=== PATIENT | male | born 1970 | race Caucasian/White ===

== ENCOUNTER 2016-06-07 10:50 | Observation (INO) ==
--- NOTE | 2016-06-07 11:01 | Emergency Department Note ---
Disposition Clinical Impression: Chest pain, CAD (coronary artery disease), Paresthesias, Dysphagia Disposition: Admitted As Inpatient Condition: Good Referrals: NO,PCP [Non-Partnered Physician] - Forms: ED Satisfaction Letter Time of Disposition: 13:31 Chest Pain HPI - General Chief Complaint: ED Chest Pain Stated Complaint: Chest Pain Time Seen by Provider: 06/07/16 10:59 Source: patient Mode of arrival: ambulatory Limitations: no limitations Vital Signs Reviewed: Yes Nursing Notes Reviewed: Yes - History of Present Illness HPI Narrative: This is a 45-year-old male who presents with complaints of palpitations and pain in his left shoulder going up into his neck times a week and a half. Patient states he has also feels swelling in his neck and like he cannot swallow fully. Patient states he has also noticed some paresthesias in his left upper extremity. Patient states he has been mildly short of breath. Patient was evaluated in a different ER a few days ago and they did not find anything going on. Patient has a hx of a pacemaker placed for bradycardia. Patient has never had any cardiac stents placed. Onset (ago): week(s) (1.5 wks) Duration: intermittent Severity scale (1-10): 4 - Related Data Home Medications Medication Instructions Recorded Confirmed No Known Home Drugs 05/28/16 06/07/16 Allergies Allergy/AdvReac Type Severity Reaction Status Date / Time ivp dye Allergy Nausea/vomiting/got Uncoded 06/07/16 13:39 hot All systems ED: reviewed and negative except as stated. Constitutional: Denies: fever, chills, weakness, weight change Eyes: Denies: eye pain, eye discharge, vision change ENT ED: Reports: dysphagia, other (pt feels like his neck is swelling). Denies : ear pain, throat pain, dental pain, hearing loss, epistaxis, congestion Cardiovascular: Reports: chest pain, palpitations. Denies: dyspnea on exertion , edema, syncope Respiratory: Reports: dyspnea. Denies: cough, wheezes, hemoptysis, stridor Gastrointestinal: Denies: abdominal pain, nausea, vomiting, diarrhea, constipation, hematemesis, melena, hematochezia Genitourinary: Denies: urgency, dysuria, frequency, hematuria Musculoskeletal: Denies: back pain, neck pain, arthralgia, myalgia Integumentary: Denies: rash, abrasion, lesions Neurological: Reports: paresthesias (to LUE). Denies: headache, weakness, numbness, confusion, abnormal gait, vertigo Psychiatric: Denies: anxiety, depression, suicidal thoughts, homicidal thoughts , auditory hallucinations, visual hallucinations Endocrine: Denies: fatigue Hematological/Lymphatic: Denies: easy bleeding, easy bruising Allergic/Immunologic: Denies: facial swelling, urticaria Chest Pain PMH - Past Medical History Medical history: Reports: arthritis, kidney stones, other Surgical history: Reports: orthopedic, other (Partial finger amputation), pacemaker/AICD Psychiatric history: Reports: anxiety - Social History Smoking Status: Current every day smoker Alcohol use: Reports: rarely Drug use: Reports: none Physical Exam - General Limitations: no limitations General appearance: alert, in no apparent distress - Head Head exam: atraumatic, normocephalic, normal inspection - Eye Eye exam: Present: normal appearance, PERRL, EOMI - ENT ENT exam: normal exam, normal oropharynx, mucous membranes moist - Expanded ENT Exam External ear exam: Present: normal external inspection Mouth exam: Present: normal external inspection Teeth exam: Present: normal inspection Throat exam: Present: normal inspection - Neck Neck exam: Present: normal inspection, full ROM, trachea midline - Chest Chest inspection: Present: normal inspection, symmetric chest wall rise - Respiratory Respiratory exam: Present: normal lung sounds bilaterally - Cardiovascular Cardiovascular exam: Present: regular rate, normal rhythm, normal heart sounds - Abdominal Exam Abdominal exam: Present: soft, Non-Tender. Absent: tenderness, distention, guarding, rebound, rigidity - Extremities Exam Extremities exam: Present: normal inspection, full ROM. Absent: tenderness, pedal edema - Expanded Upper Extremity Exam Shoulder exam: Present: normal inspection, full ROM Arm exam: Present: normal inspection, full ROM Elbow exam: Present: normal inspection, full ROM Forearm/Wrist exam: Present: normal inspection, full ROM Hand exam: Present: normal inspection, full ROM Vascular exam: Normal: capillary refill, radial pulse - Expanded Lower Extremity Exam Hip/Pelvis exam: Present: normal inspection, full ROM Upper leg exam: Present: normal inspection, full ROM Knee exam: Present: normal inspection, full ROM Lower leg exam: Present: normal inspection, full ROM Ankle exam: Present: normal inspection, full ROM Foot/toe exam: Present: normal inspection, full ROM Neurovascular/Tendon exam: Absent: motor deficit, sensory deficit, tendon deficit - Back Exam Back exam: Present: normal inspection, full ROM. Absent: tenderness - Neurological Exam Neurological exam: Present: alert, oriented X3 - Expanded Neurological Exam Patient oriented to: Present: person, place, time Speech: Present: fluid speech Cranial nerves: EOM function (II, III, IV, ): Normal, facial sensation (V): Normal, facial palsy (VII): Normal, spinal accessory function (XI): Normal, tongue deviation (XII): Normal Motor strength - LUE: 5/5 Motor strength - RUE: 5/5 Motor strength - LLE: 5/5 Motor strength - RLE: 5/5 Sensory exam upper extremity: light touch: Normal Sensory exam lower extremity: light touch: Normal Coma Scale Eye Opening: Spontaneous Coma Scale Motor Response: Obeys Commands Coma Scale Verbal Response: Oriented Coma Scale Total: 15 - Psychiatric Psychiatric exam: Present: normal affect, normal mood - Skin Skin exam: Present: warm, dry, intact, normal color Course - Consultations Consultation #1: I spoke with Dr. Braydon fuchs to admit. Time: 14:24 Vital Signs Temperature 97.8 F 06/07/16 10:51 Pulse Rate 62 06/07/16 10:51 Respiratory Rate 16 06/07/16 10:51 Blood Pressure 131/82 06/07/16 10:51 O2 Sat by Pulse Oximetry 97 06/07/16 10:51 Temperature 97.8 F 06/07/16 10:51 Pulse Rate 63 06/07/16 13:16 Respiratory Rate 16 06/07/16 13:16 Blood Pressure 122/84 06/07/16 13:16 O2 Sat by Pulse Oximetry 98 06/07/16 13:16 Oxygen Delivery Oxygen Delivery Room Air Chest Pain - Medical Records Medical records reviewed: Yes I reviewed the patient's medical records. - Lab Data Lab results reviewed: Yes I reviewed the patient's lab results. Result diagrams: 06/07/16 11:04 06/07/16 11:04 Lab Results 06/07/16 06/07/16 06/07/16 Range/Units 11:04 11:04 11:04 WBC 7.6 (4.3-11.1) K/mcL RBC 5.19 (4.19-5.50) M/mcL Hgb 14.9 (12.9-16.9) g/dL Hct 43.7 (37.5-50.1) % MCV 84.2 (83.0-100.0) fL MCH 28.7 (28.0-33.3) pg MCHC 34.1 (31.6-35.5) g/dL RDW 14.1 (11.5-14.5) % Plt Count 141 (140-400) K/mcL MPV 10.7 (9.4-12.4) fL Immature Gran % 0.3 (0-4) % Seg Neutrophils % 61.9 % Lymphocytes % 27.8 % Monocytes % 6.6 % Eosinophils % 3.0 % Basophils % 0.4 % Neutrophils # 4.7 (1.6-8.9) K/mcL Lymphocytes # 2.1 (0.6-4.6) K/mcL Monocytes # 0.5 (0.0-1.3) K/mcL Eosinophils # 0.2 (0.0-0.6) K/mcL Basophils # 0.0 (0.0-0.2) K/mcL PT 10.3 (9.4-12.1) Seconds INR 1.0 APTT 33.4 (26.0-36.0) Seconds Sodium 140 (136-145) mEq/L Potassium 3.8 (3.5-4.5) mEq/L Chloride 107 (98-109) mEq/L Carbon Dioxide 23 (19-29) mEq/L BUN 11 (8-26) mg/dL Creatinine 0.80 (0.72-1.25) mg/dL Est GFR ( Amer) > 60 (> 60) Est GFR (Non-Af Amer) > 60 (> 60) BUN/Creatinine Ratio 14 (6-26) Glucose 104 H (70-99) mg/dL Calculated Osmolality 290 (280-300) Calcium 9.1 (8.6-10.8) mg/dL Troponin I (0-0.03) ng/mL B-Natriuretic Peptide (0-100) pg/mL TSH 1.926 (0.350-4.840) mcIU/mL Urine Color (Yellow) Urine Clarity (Clear) Urine pH (5.0-8.0) pH Units Ur Specific [place] (1.010-1.025) Urine Protein (Neg-Trace) mg/dL Urine Glucose (UA) (Normal) mg/dL Urine Ketones (Negative) mg/dL Urine Blood (Negative) Urine Nitrite (Negative) Urine Bilirubin (Negative) Urine Urobilinogen (Normal) mg/dL Ur Leukocyte Esterase (Negative) Ur Culture Indicated? (NO) 06/07/16 06/07/16 06/07/16 Range/Units 11:04 11:04 12:56 WBC (4.3-11.1) K/mcL RBC (4.19-5.50) M/mcL Hgb (12.9-16.9) g/dL Hct (37.5-50.1) % MCV (83.0-100.0) fL MCH (28.0-33.3) pg MCHC (31.6-35.5) g/dL RDW (11.5-14.5) % Plt Count (140-400) K/mcL MPV (9.4-12.4) fL Immature Gran % (0-4) % Seg Neutrophils % % Lymphocytes % % Monocytes % % Eosinophils % % Basophils % % Neutrophils # (1.6-8.9) K/mcL Lymphocytes # (0.6-4.6) K/mcL Monocytes # (0.0-1.3) K/mcL Eosinophils # (0.0-0.6) K/mcL Basophils # (0.0-0.2) K/mcL PT (9.4-12.1) Seconds INR APTT (26.0-36.0) Seconds Sodium (136-145) mEq/L Potassium (3.5-4.5) mEq/L Chloride (98-109) mEq/L Carbon Dioxide (19-29) mEq/L BUN (8-26) mg/dL Creatinine (0.72-1.25) mg/dL Est GFR ( Amer) (> 60) Est GFR (Non-Af Amer) (> 60) BUN/Creatinine Ratio (6-26) Glucose (70-99) mg/dL Calculated Osmolality (280-300) Calcium (8.6-10.8) mg/dL Troponin I 0.00 (0-0.03) ng/mL B-Natriuretic Peptide 10 (0-100) pg/mL TSH (0.350-4.840) mcIU/mL Urine Color Yellow (Yellow) Urine Clarity Clear (Clear) Urine pH 7.0 (5.0-8.0) pH Units Ur Specific [place] > 1.030 H (1.010-1.025) Urine Protein Negative (Neg-Trace) mg/dL Urine Glucose (UA) Normal (Normal) mg/dL Urine Ketones Negative (Negative) mg/dL Urine Blood Negative (Negative) Urine Nitrite Negative (Negative) Urine Bilirubin Negative (Negative) Urine Urobilinogen Normal (Normal) mg/dL Ur Leukocyte Esterase Negative (Negative) Ur Culture Indicated? NO (NO) - Radiology Data Radiology results reviewed: Yes I reviewed the patient's radiology results. - EKG Data EKG attestation: Yes I reviewed and interpreted this EKG. EKG shows normal: sinus rhythm Rate: normal (paced) When compared to previous EKG there are: no significant changes Interpretation: no acute changes
[2016-06-07 11:14] LABS: Basophils % 0.4 %; Eosinophils # 0.2 K/mcL (0.0-0.6); Hematocrit 43.7 % (37.5-50.1); Hemoglobin 14.9 g/dL (12.9-16.9); Immature Granulocytes % 0.3 % (0-4); Lymphocytes # 2.1 K/mcL (0.6-4.6); Lymphocytes % 27.8 %; Mean Corpuscular HGB Conc 34.1 g/dL (31.6-35.5); Mean Corpuscular Hemoglobin 28.7 pg (28.0-33.3); Mean Corpuscular Volume 84.2 fL (83.0-100.0); Mean Platelet Volume 10.7 fL (9.4-12.4); Monocytes # 0.5 K/mcL (0.0-1.3); Monocytes % 6.6 %; Neutrophils # 4.7 K/mcL (1.6-8.9); Platelet Count 141 K/mcL (140-400); Red Blood Count 5.19 M/mcL (4.19-5.50); Red Cell Distribution Width 14.1 % (11.5-14.5); Segmented Neutrophils % 61.9 %
[2016-06-07 11:21] LABS: Prothrombin Time 10.3 Seconds (9.4-12.1)
[2016-06-07 11:23] LABS: Activated Partial Thrombo Time 33.4 Seconds (26.0-36.0)
[2016-06-07 11:26] LABS: BUN/Creatinine Ratio 14 (6-26); Blood Urea Nitrogen 11 mg/dL (8-26); Calcium 9.1 mg/dL (8.6-10.8); Carbon Dioxide 23 mEq/L (19-29); Chloride 107 mEq/L (98-109); Glucose 104 mg/dL (70-99); Osmolality,Calculated 290 (280-300); Potassium 3.8 mEq/L (3.5-4.5); Sodium 140 mEq/L (136-145); eGFR For African Americans > 60 (> 60); eGFR For Non-African Americans > 60 (> 60)
[2016-06-07 11:49] LABS: Thyroid Stimulating Hormone 1.926 mcIU/mL (0.350-4.840)
[2016-06-07 13:09] LABS: Bilirubin,Urine Negative (Negative); Blood,Urine Negative (Negative); Clarity,Urine Clear (Clear); Color,Urine Yellow (Yellow); Glucose,Urine (UA) Normal (Normal); Ketones,Urine Negative (Negative); Leukocyte Esterase,Urine Negative (Negative); Nitrite,Urine Negative (Negative); Protein,Urine Negative (Neg-Trace); Specific Gravity,Urine > 1.030 (1.010-1.025); Urobilinogen,Urine Normal (Normal)
--- NOTE | 2016-06-07 15:26 | Internal Med History&Physical ---
Date of Encounter: 06/07/16 Time of Encounter: 15:45 Assessment and Plan (1) Chest pain Current visit: Yes Status: Acute Observation. Obtain troponins. Telemetry. Troponins negative, will do a nuclear stress test tomorrow. Patient at intermediate risk for coronary disease due to history of chronic smoking, age and sex. Will check lipid profile, A1c. Qualifiers: Chest pain type: precordial chest pain Qualified Code(s): R07.2 - Precordial pain (2) Cardiac pacemaker in situ Current visit: Yes Status: Acute Consult cardiology to interrogate pacemaker. Monitor with telemetry. Patient has not had his pacemaker evaluated for for about 2 years (3) Persistent dry cough Current visit: Yes Status: Chronic Symptomatic treatment. Since CT of the chest does not show any acute lung process (4) Tobacco abuse Current visit: Yes Status: Acute Discussed cessation. Patient has had multiple unsuccessful attempts with cessation including Chantix. Offered nicotine patch. Patient refuses at this time. Internal Medicine - H&P: HPI Chief complaint: Chest pain Admitted From: Emergency Dept Plans for Post Hospital Care: Home History of present illness: Mr. Harding is a 45 year old male patient with no other past medical history besides history of sinus bradycardia status post permanent pacemaker presented to the ER with complaints of chest pain. His symptoms have been going on intermittently for about 2 weeks now. Pain is described as pressure sensation in the middle of his chest with radiation down his left arm and some numbness in his hands. He also describes some pressure over his neck associated with some of these episodes. He says it does not feel like a choking sensation. He denies any swelling of his tongue or lips. His pain is not associated with any activity and it occurs intermittently while he is at rest or when he is active. It has presently improved. Patient had a pacemaker placed into 2007 after episodes of bradycardia with heart rate going into 20s. He says there was no other abnormal rhythm associated with it. He has however not had his pacemaker evaluated for about 2 years now. He is also complaining of cough which is nonproductive. His been dealing with this cough for about 3-4 weeks now. He initially developed some bronchitis and was treated with Z-Ari and while his other symptoms have subsided, he continues to have cough. He has had negative stress tests in the past. Past Med Surg Social Fam HX - Past Medical History Medical history: arthritis, kidney stones, other (Sinus bradycardia with permanent pacemaker) Psychiatric history: anxiety - Past Surgical History Surgical History: orthopedic, other (Partial finger amputation), pacemaker/AICD (Pacemaker) - Social History Smoking Status: Current every day smoker Smokeless Tobacco Status: No Alcohol use: rarely Drug use: none - Additional Family History Additional family history: Reviewed and found to be noncontributory at this time Internal Medicine - H&P: Meds No Known Home Drugs 05/28/16 [History] Allergies ivp dye Allergy (Uncoded 06/07/16 13:39) Nausea/vomiting/got hot All Systems PM: A 10-system review of systems was performed and is negative for pertinent findings except as documented above in the HPI. - Constitutional Constitutional: no chills, no fever(s), no night sweats - EENT Eyes: no change in vision, no discharge, no pain, no photophobia Ears: no ear discharge, no ear pain, no tinnitus Nose, mouth and throat: no dysphagia, no nasal discharge, no neck pain, no sore throat - Cardiovascular Cardiovascular ROS IM: chest pain, palpitations, no diaphoresis, no dyspnea, no lightheadedness, no syncope - Respiratory Respiratory: cough, no dyspnea, no wheezing, no excessive phlegm production - Gastrointestinal Gastrointestinal: no abdominal pain, no diarrhea, no hematemesis, no hematochezia, no melena, no nausea, no vomiting - Musculoskeletal Musculoskeletal ROS IM: no numbness, no tingling - Integumentary Integumentary IM: no rash, no unusual bruising - Neurological Neurological ROS: no confusion, no convulsions, no focal weakness, no numbness, no tingling, no tremor(s) - Psychiatric Psychiatric: no confusion, no depression - Endocrine Endocrine IM: no cold intolerance, no deeping of the voice, no flushing, no heat intolerance - Hematologic/Lymphatic Hematologic/Lymphatic: no easy bruising - Constitutional Vitals: Temp Pulse Resp BP Pulse Ox 97.6 F 55 16 117/63 95 06/07/16 15:20 06/07/16 15:20 06/07/16 15:20 06/07/16 15:20 06/07/16 15:20 General appearance: Present: cooperative, mild distress, A&O X 3, answers questions appropriately - Eye Eye exam: Present: PERRL, conjuntiva pink, sclera anicteric Pupils: Present: PERRL - ENT ENT exam: Present: mucous membranes moist Additional comments: Mild pharyngeal erythema - Neck Neck exam general surgery: Present: supple, trachea midline. Absent: lymphadenopathy - Respiratory Respiratory exam: Present: CTAB. Absent: accessory muscle use, rales, rhonchi, wheezes - Cardiovascular Cardiovascular exam: Present: RRR, +S1, +S2. Absent: diastolic murmur, gallop, rubs, systolic murmur - GI/Abdominal GI/Abdominal exam: Present: normal bowel sounds, soft, no peritoneal signs. Absent: distended, tenderness - Extremities Exam Extremities exam: Present: warm, radial pulses palpable and symetrical. Absent : calf tenderness, cyanotic, pedal edema - Neurological Exam Neurological exam: Present: CN II-XII intact, oriented X3, no focal deficits. Absent: facial droop, speech deficit - Skin Skin exam: Present: dry, intact Internal Med - H&P Results - Labs CBC & Chem 7: 06/07/16 11:04 06/07/16 11:04 - EKG Data -: EKG Interpreted by Myself - EKG Data EKG comments: 06/07/16 15:57 Paced rhythm - Impressions No soft tissue swelling noted on x-ray of the neck - Diagnostic Studies CT scan - head Status: image reviewed by me Additional comments: No acute bleed or stroke. CT scan - chest Status: image reviewed by me Additional comments: No dissection seen. No acute lung process. - Attending Attestation This document has been at least partially created by [employer] voice recognition technology by Dr. Burger. Errors in grammar, wording or other phrases may exist. If errors are found after the documentation is signed, they will be addressed individually in the addendum section of this document when appropriate. Medical Decision Making - MDM Narrative Medical decision making narrative: High risk for complications due to possible acute coronary syndrome - Medical Records Medical records reviewed: Yes I reviewed the patient's medical records. - Lab Data Lab results reviewed: Yes I reviewed the patient's lab results. Result diagrams: 06/07/16 11:04 06/07/16 11:04 - Radiology Data Radiology results reviewed: Yes I reviewed the patient's radiology results.
[2016-06-07] MEDS ORDERED: Naloxone 0.4 MG/ML INJ IVP PRN (16:07)
[2016-06-07] MEDS: GuaiFENesin/Codeine Oral Soln 5 ML UDC PO PRN (20:22)
[2016-06-08 02:00] LABS: Hemoglobin A1C 5.1 %
[2016-06-08 02:01] LABS: BUN/Creatinine Ratio 14 (6-26); Blood Urea Nitrogen 11 mg/dL (8-26); Calcium 8.9 mg/dL (8.6-10.8); Carbon Dioxide 25 mEq/L (19-29); Chloride 107 mEq/L (98-109); Chol/HDL Ratio 5.4 (0-4.9); Cholesterol 172 mg/dL (< 200); Glucose 105 mg/dL (70-99); HDL Cholesterol 32 mg/dL (40-59); LDL Cholesterol,Calculated 114 mg/dL (0-99); Osmolality,Calculated 290 (280-300); Potassium 3.9 mEq/L (3.5-4.5); Sodium 140 mEq/L (136-145); Triglycerides 129 mg/dL (< 150); eGFR For African Americans > 60 (> 60); eGFR For Non-African Americans > 60 (> 60)
[2016-06-08 02:21] LABS: Hematocrit 42.7 % (37.5-50.1); Hemoglobin 14.4 g/dL (12.9-16.9); Immature Granulocytes % 0.3 % (0-4); Lymphocytes % 26.9 %; Mean Corpuscular HGB Conc 33.7 g/dL (31.6-35.5); Mean Corpuscular Hemoglobin 28.6 pg (28.0-33.3); Mean Corpuscular Volume 84.9 fL (83.0-100.0); Mean Platelet Volume 11.3 fL (9.4-12.4); Platelet Count 136 K/mcL (140-400); Red Blood Count 5.03 M/mcL (4.19-5.50); Red Cell Distribution Width 14.4 % (11.5-14.5); Segmented Neutrophils % 60.5 %
[2016-06-08 02:22] LABS: Basophils # 0.1 K/mcL (0.0-0.2); Basophils % 0.7 %; Eosinophils # 0.3 K/mcL (0.0-0.6); Eosinophils % 3.8 %; Monocytes # 0.6 K/mcL (0.0-1.3); Monocytes % 7.8 %; Neutrophils # 4.5 K/mcL (1.6-8.9)
[2016-06-08] MEDS: GuaiFENesin/Codeine Oral Soln 5 ML UDC PO PRN ×3 (02:50→20:47)
[2016-06-08] MEDS ORDERED: Ketorolac 15 MG/ML VIAL IVP ONE (03:00)
[2016-06-08] MEDS ORDERED: Regadenoson 0.4 MG/5 ML SYRINGE IVP ONE (10:53)
--- NOTE | 2016-06-08 14:16 | Nuclear Medicine Stress Report ---
Regadenoson Nuclear Stress Name: Driss Harding Date of Study: 06/08/2016 Date: 1970 Ht: 68.0 in Medical Record#: [id number] Age: 45 Wt: 155.0 lb Gender: Male Order #: [id number] Location: [facility] Room: [facility] Supervising Provider: Kevin Guzman CNP Reading Physician: Xochilt Jordan DO Ordering Physician: Ralph Woo DO Primary Care Physician: Marcia Baptiste CNP Stress Technologist: Natalie Steinberg MANAGER UNDERWRITING, CCT Engine Setter: Rehana Fischer Indications: Chest Pain Impression: Perfusion imaging was negative for ischemia or infarct. Pharmacologic ECG was negative for ischemia at the level of heart rate achieved. Gated EF = 66%. History: Hypertension Hypercholesteremia History of Smoking Stress Test Summary: Stress Test Type: Pharmacologic Regadenoson 0.4mg/5ml given IV Baseline Information: Initial Heart Rate: 62 Blood Pressure: 114/62 Stress Information: Test Terminated Due to (primary): As per protocol Maximum Blood Pressure: 114/72 Maximum Heart Rate: 94 Percent Maximum Heart Rate Achieved: 54 Double Product: [id number] METS Reached: 1 Symptoms: No chest symptoms Nuclear Summary: SPECT myocardial perfusion imaging using Tc99m Sestamibi given intravenously was performed at rest and following cardiac stress testing. The resting images were obtained following initial dose of 10.2 mCi. Following stress an additional dose of 30 mCi was given at peak exercise or 30 seconds post regadenoson infusion. Medication Given: Time Medication Dose Units Route Findings: Stress Note * Resting ECG demonstrated normal sinus rhythm otherwise normal findings. * Pharmacologic stress ECG is negative for ischemia at level of heart rate achieved. * No arrhythmias were noted during stress. * Patient had no chest pain during stress. Hemodynamic responses * Normal hemodynamic responses to pharmacologic stress. Study Quality * Study quality is good. Gated EF % * Gated EF = 66%. Left Ventricle * The left ventricle is not dilated. TID * No evidence of transient ischemic dilatation. Lung Uptake * There is no evidence of increase lung uptake. NORMALS * Normal wall motion. PERFUSION * There is a small sized mild intensity perfusion defect at rest involving the apex that improves with stress. Findings are consistent with artifact. * Other segments demonstrate normal rest and stress perfusion. Updated by Xochilt Jordan on 06/08/2016 2:10:32 PM electronically signed on 06/08/2016 2:11:13 PM with status of Final
--- NOTE | 2016-06-08 14:28 | Electrocardiograph Report ---
[facility] Test Date: 2016-06-07 Pat Name: Driss Harding Department: 102 Room: 3B46 Gender: M Tenant Coordinator: [facility] : 1970 Requested By: Emily Pike Order Number: [id number] Reading MD: Marlyn Diaz Measurements Intervals [place] Rate: 59 P: 32 DE: 144 QRS: 37 QRSD: 97 T: 33 QT: 385 QTc: 385 Interpretive Statements ELECTRONIC ATRIAL PACEMAKER ABNORMAL RHYTHM ECG Electronically Signed On 06-08-16 14:20:20 EST by Marlyn Diaz
[2016-06-08] MEDS ORDERED: Nitroglycerin 0.4 MG TAB.SUBL SL PRN (15:51)
--- NOTE | 2016-06-08 15:58 | Internal Med Progress Note ---
Date of Encounter: 06/08/16 Time of Encounter: 10:00 - Assessment and plan (1) Chest pain Current Visit: Yes Status: Acute Assessment and plan: Etiology is undetermined. 3 sets of troponin negative, stress test negative, but patient is still complaining of chest pain and palpitation. Will continue the cardiac monitoring, placed on aspirin and nitroglycerin when necessary, consult cardiology. Qualifiers: Chest pain type: precordial chest pain Qualified Code(s): R07.2 - Precordial pain (2) Cardiac pacemaker in situ Current Visit: Yes Status: Acute Assessment and plan: Have the pacemaker checked (3) Tobacco abuse Current Visit: Yes Status: Acute Assessment and plan: Smoking cessation education (4) DVT prophylaxis Current Visit: Yes Status: Acute Assessment and plan: Patient is young and ambulating, low risk for DVT, no anticoagulation placed. - Time Spent With Patient 25 - 35 minutes - Subjective Interval history: Patient is a 45-year-old male admitted for chest pain. Patient has no significant past medical history. Patient was seen and examined. He still complained sometimes the chest pain, lasts for several seconds, radiating to left arm. He did a stress test today which is negative. He also has his pacemaker checked by [employer], everything is okay per company senior sales representative. Patient compliant sometimes he has palpitation. No nausea no vomiting. 3 sets of troponin negative. Since patient is still having pain, will continue cardiac monitoring and ask for cardiac consult. - Constitutional Vitals: Temp Pulse Resp BP Pulse Ox 98.1 F 61 15 117/70 96 06/08/16 15:09 06/08/16 15:09 06/08/16 15:09 06/08/16 15:09 06/08/16 15:09 General appearance: Present: cooperative, mild distress, A&O X 3, answers questions appropriately - Head Head exam: Present: atraumatic, normocephalic - Eye Eye exam: Present: PERRL, conjuntiva pink, sclera anicteric Pupils: Present: PERRL - Neck Neck exam general surgery: Present: supple, trachea midline. Absent: lymphadenopathy - Respiratory Respiratory exam: Present: CTAB. Absent: accessory muscle use, rales, rhonchi, wheezes - Cardiovascular Cardiovascular exam: Present: RRR, +S1, +S2. Absent: diastolic murmur, gallop, rubs, systolic murmur - GI/Abdominal GI/Abdominal exam: Present: normal bowel sounds, soft, no peritoneal signs. Absent: distended, tenderness - Extremities Exam Extremities exam: Present: warm, radial pulses palpable and symetrical. Absent : calf tenderness, cyanotic, pedal edema - Neurological Exam Neurological exam: Present: CN II-XII intact, oriented X3, no focal deficits. Absent: pronater drift, facial droop, speech deficit - Skin Skin exam: Present: dry, intact Internal Medicine: Result - Labs CBC & Chem 7: 06/08/16 01:00 06/08/16 01:00 Labs: Short CBC 06/08/16 Range/Units 01:00 WBC 7.4 (4.3-11.1) K/mcL Hgb 14.4 (12.9-16.9) g/dL Hct 42.7 (37.5-50.1) % Plt Count 136 L (140-400) K/mcL Neutrophils # 4.5 (1.6-8.9) K/mcL BMP 06/08/16 01:00 Sodium 140 Potassium 3.9 Chloride 107 Carbon Dioxide 25 BUN 11 Creatinine 0.80 Glucose 105 H Calcium 8.9 Cardiac Enzymes 06/07/16 06/08/16 Range/Units 18:39 01:00 Troponin I 0.00 0.00 (0-0.03) ng/mL - ABG Interpretation ABG results: PT/INR, D-dimer PT 10.3 Seconds (9.4-12.1) 06/07/16 11:04 Consult Discharge Plan - Plan Referrals: Marcia Baptiste, MAINTENANCE MAN [Primary Care Provider] - (We have requested a follow up appointment with Marcia Baptiste. The office will call you at home with an appointment date and time.)
[2016-06-08] MEDS: Aspirin Enteric Coated 81 MG Tablet PO SCH (16:25)
[2016-06-08] MEDS ORDERED: Nicotine 2 MG GUM BC PRN (20:57)
[2016-06-09] MEDS: GuaiFENesin/Codeine Oral Soln 5 ML UDC PO PRN ×2 (03:05→08:59)
[2016-06-09] MEDS ORDERED: Ketorolac 15 MG/ML VIAL IVP ONE (03:16)
[2016-06-09 07:39] VITALS: BP 166/66
[2016-06-09] MEDS: Aspirin Enteric Coated 81 MG Tablet PO SCH (08:42)
--- NOTE | 2016-06-09 09:58 | Cardiology Consult Note ---
Date of Encounter: 06/09/16 Time of Encounter: 09:58 Assessment and Plan (1) Chest pain Current Visit: Yes Status: Acute Chest pain with typical and atypical features. Pain is mildly reproducible on left chest walk and with cough but pt reports he has a different pain as well. Troponin negtaive. EKG showed no acute ST changes. Stress test was negative for ischemia or infarct. Reports LHC in 2008 that was normal. Agressive risk factor modification. Smoking cessation discussed. Add asa 81 mg daily and statin. Cardiac risk factors include tobacco abuse, family history, and HLD. Healthy diet and exercise. Reports symptoms similar to when he needed his PPM. No arrhythmias seen on device check or telemetry. We will have him follow with Dr. Juan Diaz to manage his PPM in the future. Echocardiogram discussed. Can be done as an out-pt. Pt wanting to go home this morning. Call with questions. Qualifiers: Chest pain type: precordial chest pain Qualified Code(s): R07.2 - Precordial pain (2) Cardiac pacemaker in situ Current Visit: Yes Status: Acute Device check completed in ER. [facility] P[facility]. Normal functioning device. 3 episodes of atrial tach seen. Last episode was 5 seconds long on June 02. No concerning arrhythmias. Telemetry review shows NSR- atrial pacing. Poor out- pt f/u. We will schedule f/u so he can be re-established with cardiology. (3) Hyperlipidemia Current Visit: Yes Status: Acute Start statin. healthy exercise and diet. Qualifiers: Hyperlipidemia type: mixed hyperlipidemia Qualified Code(s): E78.2 - Mixed hyperlipidemia (4) Tobacco abuse Current Visit: Yes Status: Acute Discussed cessation. Patient has had multiple unsuccessful attempts with cessation including Chantix. Offered nicotine patch. Patient refuses at this time. Discussion w patient/family: The assessment and plan as outlined above was discussed with the patient and/or family members who expressed understanding and agreement. All questions were answered. Thank you for involving us in the care of your patient. Please call with any questions. History of Present Illness Consult date: 06/09/16 Requesting physician: Gaetano Woo Consult reason: Chest pain Chief complaint: Chest pain History of present illness: Mr. Harding is a 45 year old male who presented with recurrent chest pain and palpitations. He c/o intermittent left side chest pain and palpitations starting 2 weeks ago. His pain occurred while driving. His pain radiated to his left arm and he felt like he had a lump in his throat. He associates his symptoms with nausea, vomiting, and diaphoresis. He also has a dry cough over the last week. He denies any alleviating factors. He states his symptoms are the same he felt prior to pacemaker placement in 2008. He was seen at [facility] initially with a negative work-up. One week later he had recurrent symptoms and decided to go to the ED her at [facility]. Troponins are negative x 2, EKG shows SR with atrial pacing and no ST changes. He underwent exercise stress test yesterday that was found to be negative for ischemia. He had a device check that showed normal functioning pacemaker and no concerning arrhythmias. Cardiology consulted for further evaluation after he had recurrent symptoms after his stress test. His past medical history includes PPM in 2008 for bradycardia and tobacco abuse. He states he underwent LHC in 2008 prior to his PPM that was normal. He unfortunately has not followed with a provider for the last couple of years and has not had a device check. Past Med Surg Social Fam HX - Past Medical History Medical history: arthritis, kidney stones, other (Sinus bradycardia with permanent pacemaker) Psychiatric history: anxiety - Past Surgical History Surgical History: orthopedic, other (Partial finger amputation), pacemaker/AICD (Pacemaker) - Social History Smoking Status: Current every day smoker (STarted smoking when he was 7.) Packs per day: 1.5 Smokeless Tobacco Status: No Alcohol use: rarely Drug use: none - Family History Father Age: 73 Family Member Ethnicity: Non- Living Status: Still Living Hx Family Cardiac Disorders: Yes (CABG, [place] in 40-50's) Hx Family Respiratory Disorders: Yes Hx Family Cancer: No Hx Family GI Disorders: Yes Hx Family Genitourinary Disorders: No Hx Family Endocrine Disorder: Yes Hx Family Musculoskeletal Disorders: Yes Hx Family Neuromuscular Disorders: No Hx Family Neurologic Disorders: No Hx Family HEENT Disorders: No Hx Family Autoimmune Disorders: No Hx Family Reproductive Disorders: No Hx Family Psychosocial Disorders: Yes Hx Family Medical Disorders: No Mother Hx Family Cardiac Disorders: Yes ([place] in 40-50's) Medications and Allergies No Known Home Drugs 05/28/16 [History] Allergies ivp dye Allergy (Uncoded 06/07/16 13:39) Nausea/vomiting/got hot All Systems Review: A 10-system review of systems was performed and is negative for pertinent findings except as documented above in the HPI. Physical Examination Vital Signs, Last 4 Hours Temp Pulse Resp BP Pulse Ox 06/09/16 07:38 97.9 F 55 18 166/66 95 General: Conversant, No Apparent Distress HEENT: Atraumatic, Normocephaly, Mucus Membranes Moist Neck: No JVD, Normal carotid pulses Cardiac: Reg Rate and Rhythm, Normal S1 and S2, No Murmur Lungs: Normal Breath Sounds, No Wheeze, Rales, Rhonchi Neuro: Alert and responsive, No focal deficits noted Abdomen: Soft, Non-Tender Skin: No rashes noted on visualized skin Musculoskeletal: No Chest Wall Tenderness Extremities: No Clubbing, No Cyanosis, No Edema, Normal Pulses Results 06/08/16 01:00 06/08/16 01:00 - Imaging and Cardiology Stress Test: report reviewed - EKG Interpretation EKG results cardiology: personally reviewed Consult Discharge Plan - Plan Referrals: Marcia Baptiste, [employer]SEMBL[employer] [Primary Care Provider] - (We have requested a follow up appointment with Marcia Baptiste. The office will call you at home with an appointment date and time.)
--- NOTE | 2016-06-09 10:55 | Discharge Summary ---
Date of Encounter: 06/09/16 Time of Encounter: 10:00 - Discharge Diagnosis (1) Chest pain Priority: Primary Status: Acute Qualifiers: Chest pain type: precordial chest pain Qualified Code(s): R07.2 - Precordial pain (2) Cardiac pacemaker in situ Priority: Primary Status: Acute (3) Tobacco abuse Priority: Primary Status: Acute (4) DVT prophylaxis Priority: Secondary Status: Acute - Discharge Medications Prescriptions: Nitroglycerin 0.4 mg SL Q5MIN PRN #20 tab.subl PRN Reason: Chest Pain GuaiFENesin/Codeine [ROBITUSSIN w/CODEINE] 10 ml PO Q6HR PRN 10 Days PRN Reason: Cough Aspirin Enteric Coated [Aspirin EC] 81 mg PO DAILY #60 tablet. Simvastatin [Zocor] 40 mg PO HS #30 tablet Home Medications: Aspirin Enteric Coated [Aspirin EC] 81 mg PO DAILY #60 tablet. 06/09/16 [Rx] GuaiFENesin/Codeine [ROBITUSSIN w/CODEINE] 10 ml PO Q6HR PRN 10 Days 06/09/16 [ Rx] Nitroglycerin 0.4 mg SL Q5MIN PRN #20 tab.subl 06/09/16 [Rx] Simvastatin [Zocor] 40 mg PO HS #30 tablet 06/09/16 [Rx] Allergies/Adverse Reactions: Allergies ivp dye Allergy (Uncoded 06/07/16 13:39) Nausea/vomiting/got hot Procedures/tests Complete & Pending: Procedures Performed prior 72 hours Category Date Time Status NM serg perf SPECT multi [NM] Routine Exams 06/08/16 09:51 Taken SP pharm nuclear stress Stat Y 06/08/16 09:50 Completed Date of admission: 06/07/16 14:30 Primary care physician: Marcia Baptiste CNP Consults: 06/08/16 15:52 Consult to Cardiology [CONS] Routine Comment: Consulting Provider: Cardiology Marcy Reason for Consult: Chest pain, radiating to left arm. Stress test negative but pt still has chest pain. Call Completed: No Discharging clinician: Gaetano Woo Anticipated date of discharge: 06/09/16 - Patient Status Disposition: Home, Self-Care Condition: Good Overall status at discharge: patient is back to baseline - Discharge Instructions Follow Up With: Oliva,Marcia G, WEBBING INSPECTOR [Primary Care Provider] - (We have requested a follow up appointment with Marcia Baptiste. The office will call you at home with an appointment date and time.) Juan Diaz MD [Partnered Physician] - 06/23/16 - Diet and Activity Activity: increase activity as tolerated Diet: low fat, low cholesterol, low salt diet Interval History: Mr. Harding is a 45 year old male patient with no other past medical history besides history of sinus bradycardia status post permanent pacemaker presented to the ER with complaints of chest pain. His symptoms have been going on intermittently for about 2 weeks now. Pain is described as pressure sensation in the middle of his chest with radiation down his left arm and some numbness in his hands. He also describes some pressure over his neck associated with some of these episodes. He says it does not feel like a choking sensation. He denies any swelling of his tongue or lips. His pain is not associated with any activity and it occurs intermittently while he is at rest or when he is active. It has presently improved. Hospital course: Mr. Harding is a 45 year old male admitted for chest pain. He has history of bradycardia with pacemaker placed. Patient was checked 3 sets of troponin, which are negative. He had a stress test which shows no ischemia. His pacemaker also check by [facility]. However, patient has another episode of chest pain yesterday afternoon, cardio consult was called and saw patient. Will aggressively treat underlying risk factor and the patient will follow up cardiology as outpatient. I saw and examined the patient today. He had no further chest pain, no shortness of breath, vitals are stable. Mild nonproductive cough. Cardiology recommendation is appreciated. Patient with discharge home and the follow-up as outpatient. Time spent discussing smoking cessation with patient: more than 10 minutes - Time Spent with Patient Total time spent providing and/or coordinating discharge services: 40 minutes Greater than 30 minutes - Constitutional Vitals: Temp Pulse Resp BP Pulse Ox 97.9 F 55 18 166/66 95 06/09/16 07:38 06/09/16 07:38 06/09/16 07:38 06/09/16 07:38 06/09/16 07:38 General appearance: Present: cooperative, mild distress, A&O X 3, answers questions appropriately - Head Head exam: Present: atraumatic, normocephalic - Eye Eye exam: Present: PERRL, conjuntiva pink, sclera anicteric Pupils: Present: PERRL - Neck Neck exam general surgery: Present: supple, trachea midline. Absent: lymphadenopathy - Respiratory Respiratory exam: Present: CTAB. Absent: accessory muscle use, rales, rhonchi, wheezes - Cardiovascular Cardiovascular exam: Present: RRR, +S1, +S2. Absent: diastolic murmur, gallop, rubs, systolic murmur - GI/Abdominal GI/Abdominal exam: Present: normal bowel sounds, soft, no peritoneal signs. Absent: distended, tenderness - Extremities Exam Extremities exam: Present: warm, radial pulses palpable and symetrical. Absent : calf tenderness, cyanotic, pedal edema - Neurological Exam Neurological exam: Present: CN II-XII intact, oriented X3, no focal deficits. Absent: pronater drift, facial droop, speech deficit - Skin Skin exam: Present: dry, intact
[2016-06-09] MEDS ORDERED: Isosorbide MONOnitrate (24 HR) 30 MG TAB.ER.24H PO SCH (11:15)
== END 2016-06-09 12:07 | disposition home or self-care (01) ==
LOC: EMEROO 10:50 → 3BNU 10:50 → SUATTDRO 14:30 → 3BNU 14:50
PROVIDERS: ADMIT Internal Medicine; ATTEND Internal Medicine

== ENCOUNTER 2018-02-06 22:08 | Observation (INO) ==
--- NOTE | 2018-02-06 23:47 | Emergency Department Note ---
Disposition Clinical Impression: Chest pain Qualifiers: Chest pain type: unspecified Qualified Code(s): R07.9 - Chest pain, unspecified Disposition: Admitted As Inpatient Condition: Fair Time of Disposition: 03:36 General Adult HPI - General Chief complaint: ED Chest Pain Stated complaint: chest pain Time Seen by Provider: 02/06/18 22:48 Source: patient, EMS Mode of arrival: EMS Limitations: no limitations Nursing Notes Reviewed: Yes Vital Signs Reviewed: Yes - History of Present Illness HPI Narrative: Patient is a 47-year-old male with past history of sick sinus syndrome currently has a pacemaker no other pertinent past medical history presents for evaluation of chest pain that started at approximately 2200 today. States the chest pain came on suddenly when he was walking around his house states it was substernal pressure like associated with dyspnea at that time. States he called the squad and which she received a full dose of aspirin. Patient states is also been having off and on palpitations this past week with the last episode being yesterday when he was working in the yard and had onset of chest pressure with palpitations which she stopped working in the yard and the symptoms resolved. 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 Pain Scale: 4 - Related Data Previous Rx's Medication Instructions Recorded Aspirin Enteric Coated [Aspirin EC] 81 mg PO DAILY #60 tablet. 06/09/16 GuaiFENesin/Codeine [ROBITUSSIN 10 ml PO Q6HR PRN 10 Days udc 06/09/16 w/CODEINE] Nitroglycerin 0.4 mg SL Q5MIN PRN #20 tab.subl 06/09/16 Simvastatin [Zocor] 40 mg PO HS #30 tablet 06/09/16 Meclizine HCl [Verticalm] 25 mg PO Q6H PRN #20 tablet 08/18/17 Allergies Allergy/AdvReac Type Severity Reaction Status Date / Time ivp dye AdvReac Nausea/vomiting/got Uncoded 08/18/17 06:36 hot All systems ED: reviewed and negative except as stated. Review of Systems: As Per HPI Constitutional: Denies: fever, chills Cardiovascular: Reports: chest pain, palpitations, dyspnea on exertion. Denies : orthopnea, edema, syncope, paroxysmal nocturnal dyspnea Respiratory: Reports: dyspnea. Denies: cough, wheezes Past Medical History - Past Medical History Attestation: Yes The following information was validated with the patient. Medical history: Reports: arthritis, kidney stones, other Surgical history: Reports: orthopedic, other (Partial finger amputation), pacemaker/AICD (Pacemaker) Psychiatric history: Reports: anxiety - Social History Smoking Status: Current every day smoker Smokeless Tobacco Status: No Alcohol use: Reports: rarely Drug use: Reports: none Physical Exam CONSTITUTIONAL: Well-appearing; well-nourished; A&O X 3, in no apparent distress HEAD: Normocephalic; atraumatic EYES: PERRL, no scleral icterus NOSE: The nose is normal in appearance without rhinorrhea NECK: No JVD or distended neck veins RESP: Normal chest excursion with respiration; breath sounds clear and equal bilaterally; no wheezes, rhonchi, or rales CARD: Regular rhythm, without murmurs, rub or gallop ABD: Non-distended; non-tender, soft, without rigidity, rebound or guarding,no pulsatile mass CHEST: No pain with palpation SKIN: Normal for age and race; warm and dry without diaphoresis ; no apparent lesions EXTREMITIES: Pulses are 2 plus and equal times 4 extremities, no peripheral edema or calf muscle pain - General Limitations: no limitations General appearance: alert Course Course Narrative: Patient presented with typical chest pain had resolved upon arrival. Given his history of pacemaker placement in sick sinus syndrome and risk factors he has a moderate heart score so plan is to admit him to the hospital for further evaluation and treatment. Vital Signs Temperature 98.6 F 02/06/18 22:10 Pulse Rate 67 02/06/18 22:10 Respiratory Rate 20 02/06/18 22:10 Blood Pressure 144/86 02/06/18 22:10 O2 Sat by Pulse Oximetry 100 02/06/18 22:10 Temperature 98.6 F 02/06/18 22:10 Pulse Rate 55 02/07/18 01:34 Respiratory Rate 18 02/07/18 01:34 Blood Pressure 110/73 02/07/18 01:34 O2 Sat by Pulse Oximetry 97 02/07/18 01:34 Oxygen Delivery Oxygen Delivery Room Air Medical Decision Making - Medical Records Medical records reviewed: Yes I reviewed the patient's medical records. - Lab Data Lab results reviewed: Yes I reviewed the patient's lab results. Result diagrams: 02/06/18 22:29 02/06/18 22:29 Lab Results 02/06/18 02/06/18 02/06/18 Range/Units 22:29 22:29 22:29 WBC 10.4 (4.3-11.1) K/mcL RBC 5.86 H (4.19-5.50) M/mcL Hgb 17.0 H (12.9-16.9) g/dL Hct 49.7 (37.5-50.1) % MCV 84.8 (83.0-100.0) fL MCH 29.0 (28.0-33.3) pg MCHC 34.2 (31.6-35.5) g/dL RDW 14.2 (11.5-14.5) % Plt Count 171 (140-400) K/mcL MPV 11.7 (9.4-12.4) fL Immature Gran % 1.1 (0-4) % Seg Neutrophils % 65.1 % Lymphocytes % 25.8 % Monocytes % 5.0 % Eosinophils % 2.4 % Basophils % 0.6 % Neutrophils # 6.7 (1.6-8.9) K/mcL Lymphocytes # 2.7 (0.6-4.6) K/mcL Monocytes # 0.5 (0.0-1.3) K/mcL Eosinophils # 0.3 (0.0-0.6) K/mcL Basophils # 0.1 (0.0-0.2) K/mcL Sodium 138 (136-145) mEq/L Potassium 3.8 (3.5-5.1) mEq/L Chloride 107 (98-107) mEq/L Carbon Dioxide 25 (23-29) mEq/L BUN 13 (6-20) mg/dL Creatinine 0.81 (0.70-1.30) mg/dL Est GFR ( Amer) > 60 (> 60) Est GFR (Non-Af Amer) > 60 (> 60) BUN/Creatinine Ratio 16 (6-26) Glucose 93 (70-105) mg/dL Calculated Osmolality 286 (280-300) Calcium 9.1 (8.6-10.3) mg/dL Troponin I < 0.03 (< 0.04) ng/mL TSH 0.913 (0.340-5.600) mcIU/mL - Radiology Data Radiology results reviewed: Yes I reviewed the patient's radiology results. Chest X-Ray 02/07/18 23:44 IMPRESSION: No acute process. D/ / Joaquim Tejada MD / Joaquim Tejada MD Interpreting Provider: Joaquim Tejada MD - EKG Data EKG #1 EKG attestation: Yes I reviewed and interpreted this EKG. EKG results narrative: EKG done at 22:17 shows paced rhythm at a rate of 67 bpm. Normal axis. Intervals within normal limits. Attestation Statement - Attestation Attestation: I examined this patient and my medical decision-making was reviewed with the Resident Physician. I agree with the documented findings, disposition and treatment plan as described except to the extent set forth below. Findings consistent with chest pain. It is atypical in nature. Patient will be admitted for ACS rule out given history of sick sinus syndrome as well as other risk factors.
[2018-02-07 00:16] LABS: BUN/Creatinine Ratio 16 (6-26); Blood Urea Nitrogen 13 mg/dL (6-20); Calcium 9.1 mg/dL (8.6-10.3); Carbon Dioxide 25 mEq/L (23-29); Chloride 107 mEq/L (98-107); Glucose 93 mg/dL (70-105); Osmolality,Calculated 286 (280-300); Potassium 3.8 mEq/L (3.5-5.1); Sodium 138 mEq/L (136-145); eGFR For Non-African Americans > 60 (> 60)
[2018-02-07 00:17] LABS: Troponin I < 0.03 ng/mL (< 0.04)
[2018-02-07 00:20] LABS: Basophils # 0.1 K/mcL (0.0-0.2); Basophils % 0.6 %; Eosinophils # 0.3 K/mcL (0.0-0.6); Eosinophils % 2.4 %; Hematocrit 49.7 % (37.5-50.1); Immature Granulocytes % 1.1 % (0-4); Lymphocytes # 2.7 K/mcL (0.6-4.6); Lymphocytes % 25.8 %; Mean Corpuscular HGB Conc 34.2 g/dL (31.6-35.5); Mean Corpuscular Volume 84.8 fL (83.0-100.0); Mean Platelet Volume 11.7 fL (9.4-12.4); Monocytes # 0.5 K/mcL (0.0-1.3); Neutrophils # 6.7 K/mcL (1.6-8.9); Platelet Count 171 K/mcL (140-400); Red Blood Count 5.86 M/mcL (4.19-5.50); Red Cell Distribution Width 14.2 % (11.5-14.5); Segmented Neutrophils % 65.1 %
[2018-02-07] MEDS ORDERED: *HR* FentaNYL (PF) 100 MCG/2 ML VIAL IVP PRN (06:36)
[2018-02-07] MEDS ORDERED: Acetaminophen 325 MG TABLET PO PRN (08:01)
[2018-02-07] MEDS ORDERED: Naloxone 0.4 MG/ML INJ IVP PRN (08:01)
--- NOTE | 2018-02-07 08:14 | Internal Med History&Physical ---
Date of Encounter: 02/07/18 Time of Encounter: 08:14 Internal Medicine - H&P: HPI Chief complaint: cp Admitted From: Emergency Dept Plans for Post Hospital Care: Home History of present illness: Mr. Harding is a 47 year old male PMH of sinus bradycardia s/p pacemaker/AICD- presented to the ED with complaints of CP. He describes his pain as pressure which radiated to shoulder blades and to neck . He had associated sx of nausea and lightheadedness. He did note palpitations during episode- he states he has been experiencing palpations more frequently over the past 2 days. Symptoms were worse with exertion and relieved with rest. He did have a stress test 2016 which was negative for ischemia or infarct, however he has not followed up with cardiology since this time. He currently denies any CP his troponin negative x2 EKG atrial paced with some slight ST elevation in 1, AVL V2 I did review EKG with Dr Morley cardiology. He will be admitted for observation, Undergo stress test, echo cardiology consulted - interrogate pacemaker . He is hemodynamically stable at this time Past Med Surg Social Fam HX - Past Medical History Medical history: arthritis, kidney stones, other Additional medical history: pacer Psychiatric history: anxiety - Past Surgical History Surgical History: orthopedic, other (Partial finger amputation), pacemaker/AICD (Pacemaker) Additional surgical history: left ring finger partial amputation - Social History Smoking Status: Current every day smoker Smokeless Tobacco Status: No Alcohol use: rarely Drug use: none - Family History Father Family Member Ethnicity: Non- Living Status: Still Living Hx Family Cardiac Disorders: Yes (CABG, CT in 40-50's) Hx Family Respiratory Disorders: Yes Hx Family Cancer: No Hx Family GI Disorders: Yes Hx Family Endocrine Disorder: Yes Hx Family Neuromuscular Disorders: No Hx Family Neurologic Disorders: No Hx Family HEENT Disorders: No Hx Family Autoimmune Disorders: No Mother Hx Family Cardiac Disorders: Yes ([place] in 40-50's) Internal Medicine - H&P: Meds No Known Home Drugs 02/07/18 [History] 3 Allergy/AdvReac Type Severity Reaction Status Date / Time ivp dye AdvReac Nausea/vomiting/got Uncoded 08/18/17 06:36 hot All Systems PM: A 10-system review of systems was performed and is negative for pertinent findings except as documented above in the HPI. - Constitutional Constitutional: no chills, no fever(s), no night sweats - EENT Eyes: no change in vision, no discharge, no pain, no photophobia Ears: no ear discharge, no ear pain, no tinnitus Nose, mouth and throat: no dysphagia, no nasal discharge, no neck pain, no sore throat - Cardiovascular Cardiovascular ROS IM: chest pain, palpitations, no diaphoresis, no dyspnea, no lightheadedness, no syncope - Respiratory Respiratory: no cough, no dyspnea, no wheezing, no excessive phlegm production - Gastrointestinal Gastrointestinal: no abdominal pain, no diarrhea, no hematemesis, no hematochezia, no melena, no nausea, no vomiting - Musculoskeletal Musculoskeletal ROS IM: no numbness, no tingling - Integumentary Integumentary IM: no rash, no unusual bruising - Neurological Neurological ROS: no confusion, no convulsions, no focal weakness, no numbness, no tingling, no tremor(s) - Hematologic/Lymphatic Hematologic/Lymphatic: no easy bruising - Constitutional Vitals: Temp Pulse Resp BP Pulse Ox 98.4 F 56 12 116/75 97 02/07/18 07:51 02/07/18 07:51 02/07/18 07:51 02/07/18 07:51 02/07/18 07:51 General appearance: Present: A&O X 3 Exam: see above - Head Head exam: Present: atraumatic, normocephalic - Eye Eye exam: Present: PERRL, conjuntiva pink, sclera anicteric Pupils: Present: PERRL - Neck Neck exam general surgery: Present: supple, trachea midline. Absent: lymphadenopathy - Respiratory Respiratory exam: Present: CTAB. Absent: accessory muscle use, rales, rhonchi, wheezes - Cardiovascular Cardiovascular exam: Present: RRR, +S1, +S2. Absent: diastolic murmur, gallop, rubs, systolic murmur - GI/Abdominal GI/Abdominal exam: Present: normal bowel sounds, soft, no peritoneal signs. Absent: distended, tenderness - Extremities Exam Extremities exam: Present: warm, radial pulses palpable and symmetrical. Absent : calf tenderness, cyanotic, pedal edema - Neurological Exam Neurological exam: Present: CN II-XII intact, oriented X3, no focal deficits. Absent: pronater drift, facial droop, speech deficit - Skin Skin exam: Present: dry, intact Internal Med - H&P Results - Labs CBC & Chem 7: 02/07/18 08:31 02/06/18 22:29 Labs: Cardiac Enzymes 02/07/18 Range/Units 07:15 Troponin I < 0.03 (< 0.04) ng/mL - Impressions ITS Impressions Chest X-Ray 02/07/18 23:44 IMPRESSION: No acute process. D/ / Joaquim Tejada MD / Joaquim Tejada MD Interpreting Provider: Joaquim Tejada MD - Assessment and plan (1) Chest pain Current Visit: Yes Status: Acute Assessment and plan: 1 patient has hx of sinus bradycardia with pacemaker placement. He has been experiencing CP with palpitations nausea and lightheadedness- had stress test 2016 which was negative for ischemia of infarct -device check 2016 Normal functioning episode of atrial tach, No concerning arrhythmias - will consult cardiology for device check Trend troponins cont cardiac monitoring ASA and statin check lipid profile Nitroglycerine as needed for CP Cardiac echo cardiac stress test Qualifiers: Chest pain type: unspecified Qualified Code(s): R07.9 - Chest pain, unspecified (2) Cardiac pacemaker in situ Current Visit: No Status: Acute Assessment and plan: [address] ([facility] PPM) check per cardiology - cardiology consulted (3) DVT prophylaxis Current Visit: No Status: Acute Assessment and plan: encourage ambulation- lovenox (4) Tobacco abuse Current Visit: No Status: Acute Assessment and plan: encourage stop smoking nicotine patch - Time Spent With Patient Total time spent is greater than 50% in coordination of care (as documented) at patient's floor/unit and/or counseling patient:
[2018-02-07 08:45] LABS: Basophils # 0.1 K/mcL (0.0-0.2); Basophils % 0.8 %; Eosinophils # 0.2 K/mcL (0.0-0.6); Eosinophils % 3.3 %; Hematocrit 46.8 % (37.5-50.1); Hemoglobin 16.1 g/dL (12.9-16.9); Immature Granulocytes % 0.7 % (0-4); Lymphocytes # 2.2 K/mcL (0.6-4.6); Lymphocytes % 30.6 %; Mean Corpuscular HGB Conc 34.4 g/dL (31.6-35.5); Mean Corpuscular Hemoglobin 29.2 pg (28.0-33.3); Mean Corpuscular Volume 84.8 fL (83.0-100.0); Mean Platelet Volume 11.1 fL (9.4-12.4); Monocytes # 0.4 K/mcL (0.0-1.3); Monocytes % 5.6 %; Neutrophils # 4.3 K/mcL (1.6-8.9); Platelet Count 152 K/mcL (140-400); Red Blood Count 5.52 M/mcL (4.19-5.50); Red Cell Distribution Width 14.2 % (11.5-14.5)
--- NOTE | 2018-02-07 09:03 | Electrocardiograph Report ---
[facility] Test Date: 2018-02-06 Pat Name: Driss Harding Department: [id number] Room: [facility] Gender: M Formulator: : 1970 Requested By: Darci Hein Order Number: [id number] Reading MD: Roberto Santiago Measurements Intervals [place] Rate: 67 P: 60 [place]: 149 QRS: 84 QRSD: 92 T: 8 QT: 375 QTc: 396 Interpretive Statements Sinus rhythm ST elev, probable normal early repol pattern Electronically Signed On 02-07-2018 9:00:58 EDT by Roberto Santiago
--- NOTE | 2018-02-07 09:03 | Electrocardiograph Report ---
[facility] Test Date: 2018-02-07 Pat Name: Driss Harding Department: [id number] Room: [facility] Gender: M Brownell Operator: : 1970 Requested By: Darci Hein Order Number: [id number] Reading MD: Roberot Santiago Measurements Intervals [place] Rate: 55 P: NV: 166 QRS: 68 QRSD: 95 T: 5 QT: 411 QTc: 394 Interpretive Statements Atrial-paced rhythm Borderline ST elevation, anterolateral leads Electronically Signed On 02-07-2018 9:01:49 EDT by Roberto Santiago
[2018-02-07] MEDS ORDERED: Aspirin 325 MG TABLET PO ONE (10:09)
[2018-02-07 11:56] VITALS: BP 123/88
[2018-02-07] MEDS ORDERED: Regadenoson 0.4 MG/5 ML SYRINGE IVP ONE (13:09)
[2018-02-07] MEDS: Regadenoson 0.4 MG/5 ML SYRINGE IVP ONE ×2 (13:17→15:46)
--- NOTE | 2018-02-07 15:52 | Cardiology Consult Note ---
Date of Encounter: 02/07/18 Time of Encounter: 10:52 Assessment and Plan (1) Palpitations Current Visit: Yes Status: Acute Intermittent palpitations. Pacemaker interrogated revealed no events, with normal sensing and pacing function. Battery life 5 yrs. Patient needs to follow up for pacemaker check in 4-6months (2) Chest pain Current Visit: Yes Status: Acute Atypical chest pain in a patient with risk factors. Exercise nuclear stress test reveals no ischemia. Risk modification. Urged to quit smoking- follow up with PCP. Weight loss and exercise advised. Qualifiers: Chest pain type: unspecified Qualified Code(s): R07.9 - Chest pain, unspecified (3) Tobacco abuse Current Visit: No Status: Acute He was counseled on the need to quit smoking. He states that he has cut down significantly on his own to 1/2 PPD. Follow up with his PCP advised. Discussion w patient/family: The assessment and plan as outlined above was discussed with the patient and/or family members who expressed understanding and agreement. All questions were answered. Thank you for involving us in the care of your patient. Please call with any questions. Urged to quit smoking History of Present Illness Consult date: 02/07/18 History of present illness: 47 year old male current everyday smoker, hx of sick sinus syndrome s/p [employer] permanent pacemaker implanted in 2008, admitted to the hospital for chest discomfort and palpitations over the past 2 days. He reports he was sitting down around 6pm last evening when he felt chest pressure radiating to his shoulder. It resolved spontaneously. No hx of nausea or diaphoresis. He did note palpitations during episode- he states he has been experiencing palpations more frequently over the past 2 days. His last stress test was in 05/2016 which was negative for ischemia however he has not followed up with any doctor since. He has remained chest pain free, and troponin are negative x2. He has tried to quit smoking with different pharmacological methods. He has not had much success in that regard. He has used Chantix and nicotine patch. Past Med Surg Social Fam HX - Past Medical History Medical history: arthritis, kidney stones, other Additional medical history: pacer Psychiatric history: anxiety - Past Surgical History Surgical History: orthopedic, other (Partial finger amputation), pacemaker/AICD (Pacemaker) Additional surgical history: left ring finger partial amputation - Social History Smoking Status: Current every day smoker Smokeless Tobacco Status: No Alcohol use: rarely Drug use: none - Family History Father Family Member Ethnicity: Non- Living Status: Still Living Hx Family Cardiac Disorders: Yes (CABG, [place] in 40-50's) Hx Family Respiratory Disorders: Yes Hx Family Cancer: No Hx Family GI Disorders: Yes Hx Family Endocrine Disorder: Yes Hx Family Neuromuscular Disorders: No Hx Family Neurologic Disorders: No Hx Family HEENT Disorders: No Hx Family Autoimmune Disorders: No Mother Hx Family Cardiac Disorders: Yes ([place] in 40-50's) Medications and Allergies No Known Home Drugs 02/07/18 [History] 3 Allergy/AdvReac Type Severity Reaction Status Date / Time ivp dye AdvReac Nausea/vomiting/got Uncoded 08/18/17 06:36 hot All Systems Review: The remainder of the systems were reviewed and are negative - Constitutional Constitutional: no fever(s), no headache(s) - EENT Eyes: no blurred vision Nose, mouth and throat: no bleeding gums, no odynophagia - Cardiovascular Cardiovascular: as per HPI - Respiratory Respiratory: no cough, no dyspnea - Gastrointestinal Gastrointestinal: no abdominal pain, no dysphagia - Genitourinary Genitourinary: no dysuria - Musculoskeletal Musculoskeletal: no abnormal gait - Neurological Neurological: no abnormal speech, no dizziness - Psychiatric Psychiatric: no anxiety - Hematological/Lymphatic Hematologic/Lymphatic: no easy bleeding Physical Examination Vital Signs, Last 4 Hours Temp Pulse Resp BP Pulse Ox 02/07/18 11:56 98.1 F 60 14 123/88 98 General: Conversant HEENT: Atraumatic Neck: No JVD Cardiac: Reg Rate and Rhythm, Normal S1 and S2, No Murmur Lungs: Normal Breath Sounds, No Wheeze, Rales, Rhonchi Neuro: Alert and responsive, No focal deficits noted Abdomen: Soft, Non-Tender Musculoskeletal: No Chest Wall Tenderness Extremities: No Edema Results 02/07/18 08:31 02/06/18 22:29 Lab Results 02/07/18 02/07/18 02/07/18 07:15 08:31 14:04 WBC 7.3 Hgb 16.1 Hct 46.8 Plt Count 152 Troponin I < 0.03 < 0.03 - EKG Interpretation EKG results cardiology: other (A-paced rhythm @ 55/min, early repolarization) Consult Discharge Plan - Plan Referrals: Marcia Baptiste, DESK[facility] SUPPORT SPECIALIST [Primary Care Provider] -
--- NOTE | 2018-02-07 17:50 | Discharge Summary ---
- NOTES TO OUTPATIENT PROVIDER Notes to Outpatient Provider: Presented with palpitations and chest pain nuclear stress test no ischemia pacemaker interrogated with no events will need to follow-up pacemaker checks in 4-6 months-risk modifications Orders not resulted at time of discharge: Pending orders 02/07/18 08:04 EV echocardiogram Routine 02/07/18 10:16 NM serg perf SPECT multi [NM] Routine 02/07/18 18:36 Troponin I Q6H 02/08/18 04:00 Basic Metabolic Panel AM 0400 Lipid Panel AM 0400 Date of Encounter: 02/07/18 Time of Encounter: 17:46 - Discharge Diagnosis (1) Chest pain Priority: Primary Status: Acute Assessment and Plan: 1 patient has hx of sinus bradycardia with pacemaker placement. He has been experiencing CP with palpitations nausea and lightheadedness- had stress test 2016 which was negative for ischemia of infarct -device check 2017 Normal functioning episode of atrial tach, No concerning arrhythmias - will consult cardiology for device check Trend troponins cont cardiac monitoring ASA and statin check lipid profile Nitroglycerine as needed for CP Cardiac echo cardiac stress test Qualifiers: Chest pain type: unspecified Qualified Code(s): R07.9 - Chest pain, unspecified (2) Cardiac pacemaker in situ Priority: Secondary Status: Acute (3) Tobacco abuse Priority: Secondary Status: Acute Hospital course: Mr. Harding is a 47 year old male PMH of sinus bradycardia s/p pacemaker/AICD- presented to the ED with complaints of CP. He describes his pain as pressure which radiated to shoulder blades and to neck . He had associated sx of nausea and lightheadedness. He did note palpitations during episode- he states he has been experiencing palpations more frequently over the past 2 days. Symptoms were worse with exertion and relieved with rest. He did have a stress test 2016 which was negative for ischemia or infarct, however he has not followed up with cardiology since this time. He currently denies any CP his troponin negative x2 EKG atrial paced with some slight ST elevation in 1, AVL V2 I did review EKG with Dr Morley cardiology. Cardiology was consulted Pacemaker was interrogated with no events. Patient underwent exercise nuclear stress test which was negative for any ischemia-recent was advised to stop smoking-declined any smoking cessation methods at this time he is to follow-up with PCP verbalize understanding. He is hemodynamically stable this time. Discharge discussed with: patient - Time Spent with Patient Total time spent providing and/or coordinating discharge services: - Discharge Medications Home Medications: No Known Home Drugs 02/07/18 [History] Allergies/Adverse Reactions: 3 Allergy/AdvReac Type Severity Reaction Status Date / Time ivp dye AdvReac Nausea/vomiting/got Uncoded 08/18/17 06:36 hot Date of admission: 02/07/18 03:45 Primary care physician: Marcia Baptiste CNP Consults: 02/07/18 08:12 Consult to Cardiology [CONS] Routine Comment: Consulting Provider: Cardiology Marcy Reason for Consult: cp Time Notified: 08:12 Call Completed: Yes Discharging clinician: Brooklyn Ortiz Anticipated date of discharge: 02/07/18 - Constitutional Vitals: Temp Pulse Resp BP Pulse Ox 98.1 F 60 16 123/88 98 02/07/18 11:56 02/07/18 17:13 02/07/18 17:13 02/07/18 11:56 02/07/18 11:56 General appearance: Present: A&O X 3 Exam: see above - Head Head exam: Present: atraumatic, normocephalic - Eye Eye exam: Present: PERRL, conjuntiva pink, sclera anicteric Pupils: Present: PERRL - Neck Neck exam general surgery: Present: supple, trachea midline. Absent: lymphadenopathy - Respiratory Respiratory exam: Present: CTAB. Absent: accessory muscle use, rales, rhonchi, wheezes - Cardiovascular Cardiovascular exam: Present: RRR, +S1, +S2. Absent: diastolic murmur, gallop, rubs, systolic murmur - GI/Abdominal GI/Abdominal exam: Present: normal bowel sounds, soft, no peritoneal signs. Absent: distended, tenderness - Extremities Exam Extremities exam: Present: warm, radial pulses palpable and symmetrical. Absent : calf tenderness, cyanotic, pedal edema - Neurological Exam Neurological exam: Present: CN II-XII intact, oriented X3, no focal deficits. Absent: pronater drift, facial droop, speech deficit - Skin Skin exam: Present: dry, intact - Patient Status Disposition: Home, Self-Care Condition: Fair Functional capacity at discharge: independent ambulation Overall status at discharge: patient is back to baseline - Discharge Instructions Instructions: Chest Pain (DC) Follow Up With: Marcia Baptiste CNP [Primary Care Provider] - (Please call and schedule follow -up appoint in 7-10 days. Office closed at time of patient discharge. ) Forms: Inpatient Work/School Release - Diet and Activity Activity: increase activity as tolerated Diet: low fat, low cholesterol
--- NOTE | 2018-02-07 21:25 | Electrocardiograph Report ---
[facility] Test Date: 2018-02-07 Pat Name: Driss Harding Department: [id number] Room: [facility] Gender: M Chief Design Branch: : 1970 Requested By: Mil Bowen Order Number: [id number] Reading MD: Roberto Santiago Measurements Intervals [place] Rate: 72 P: 77 [place]: 151 QRS: 70 QRSD: 99 T: 1 QT: 409 QTc: 448 Interpretive Statements Sinus rhythm Borderline ST elevation, lateral leads Electronically Signed On 02-07-2018 21:23:39 EDT by Roberto Santiago
[2018-02-08] MEDS ORDERED: *HR* Enoxaparin 40 MG/0.4 ML SYRINGE SQ SCH (07:00)
[2018-02-08] MEDS ORDERED: Nicotine 14 MG PATCH.TD24 TD SCH (09:00)
[2018-02-08] MEDS ORDERED: Aspirin 81 MG TAB.CHEW PO SCH (09:00)
== END 2018-02-07 18:19 | disposition home or self-care (01) ==
LOC: 2SOUTHHOLD 22:08 → EMEROOARM 22:08 → 2SOUTHHOLD 02-07 06:09
PROVIDERS: ADMIT Pediatrics; ATTEND Pediatrics